=== PATIENT | female | born 1970 | race Caucasian/White ===

== ENCOUNTER → 2016-11-06 | Outpatient (CLI) | payer OTHER | LOC: CIMAGING 10:05 | DX: Z12.31 Encounter for screening mammogram for malignant neoplasm of breast (principal) | CPT/HCPCS: G0202 ==

== ENCOUNTER 2017-07-29 06:23 | Day surgery (SDC) | payer OTHER ==
[2017-07-29 06:57] VITALS: PULSE 56
[2017-07-29] MEDS ORDERED: LR 1,000 ML IV ONE (07:20)
[2017-07-29] MEDS ORDERED: MIDAZOLAM 2 MG/2 ML VIAL IVP ONE (07:42)
--- NOTE | 2017-07-29 07:43 | PDANEPAE ---
ANE Past Medical History - Cardiovascular History Hx Hypertension: No Hx Arrhythmias: No Hx Chest Pain: No Hx Coronary Artery / Peripheral Vascular Disease: No Hx CHF / Valvular Disease: No Hx Palpitations: No Cardiovascular History Comment: BP RUNS LOW - Pulmonary History Hx COPD: No Hx Asthma/Reactive Airway Disease: No Hx Recent Upper Respiratory Infection: No Hx Oxygen in Use at Home: No Hx Sleep Apnea: No Sleep Apnea Screening Result - Last Documented: Positive - Neurologic History Hx Cerebrovascular Accident: No Hx Seizures: No Hx Dementia: No Neurologic History Comment: MIGRAINES OCCAS X3 YRLY - Endocrine History Hx Diabetes: No Hypothyroid: No Hyperthyroid: No Obesity: no - Renal History Hx Renal Disorders: No - Liver History Hx Hepatic Disorders: No - Neurological & Psychiatric Hx Hx Neurological and Psychiatric Disorders: No - Cancer History Hx Cancer: No - Congenital Disorder History Hx Congenital Disorders: No - GI History Hx Gastrointestinal Disorders: No - Other Health History Other Health History: NEG - Chronic Pain History Chronic Pain: No - Surgical History Prior Surgeries: MYOMECTOMY LAPAROSCOPIC. C SECTION X2 ANE Review of Systems Review of Systems: - Exercise capacity METS (RN): 5 METS ANE Patient History - Allergies Allergies/Adverse Reactions: No Known Allergies Allergy (Verified 01/30/12 20:28) - Home Medications Home Medications: Advil 06/25/17 [Last Taken Unknown] Herbals/Supplements -Info Only 06/25/17 [Last Taken Unknown] - NPO status NPO Since - Liquids (Date): 07/28/17 NPO Since - Liquids (Time): 20:00 NPO Since - Solids (Date): 07/28/17 NPO Since - Solids (Time): 20:00 - Smoking Hx Smoking Status: Never smoked - Family Anes Hx Family Hx Anesthesia Complications: NEG ANE Labs/Vital Signs - Vital Signs Blood Pressure: 106/72 Heart Rate: 56 Respiratory Rate: 16 O2 Sat (%): 98 Height: 165.1 cm Weight: 63.503 kg ANE Physical Exam - Airway Neck exam: FROM Mallampati Score: Class 1 Mouth exam: normal dental/mouth exam - Pulmonary Pulmonary: no respiratory distress - Cardiovascular Cardiovascular: regular rate and rhythym - ASA Status ASA Status: I ANE Anesthesia Plan Anesthesia Plan: GA w LMA
[2017-07-29] MEDS ORDERED: SCOPOLAMINE HYDROBROMIDE 1 MG/3 DAYS PATCH TD SCH (07:45)
[2017-07-29] MEDS ORDERED: LIDO/EPI 1% **for epidural** 30 ML SDV ONE (07:53)
[2017-07-29] MEDS ORDERED: fentaNYL 100 MCG/2 ML INJ ONE (08:06)
[2017-07-29] MEDS ORDERED: PROPOFOL 200 MG/20 ML VIAL ONE ×2 (08:07)
[2017-07-29] MEDS ORDERED: LIDOCAINE 2% 5 ML SDV ONE (08:07)
--- NOTE | 2017-07-29 08:13 | PDHPUP ---
History & Physical Update H&P update statement: This history and physical update is based on an assessment of the patient which was completed after admission or registration (within 24 hours), but prior to the surgery/procedure.
[2017-07-29] MEDS ORDERED: KETOROLAC 30 MG/1 ML SDV ONE (08:45)
[2017-07-29] MEDS ORDERED: ONDANSETRON 4 MG/2 ML VIAL ONE (08:45)
[2017-07-29] MEDS ORDERED: DEXAMETHASONE 4 MG/ML VIAL ONE (08:45)
[2017-07-29] MEDS ORDERED: LR 500 ML IV PRN (08:50)
[2017-07-29] MEDS ORDERED: fentaNYL 100 MCG/2 ML INJ IVP PRN (08:50)
[2017-07-29] MEDS ORDERED: NALOXONE HCL 0.4 MG/ML INJ IVP PRN (08:50)
[2017-07-29] MEDS ORDERED: HYDROCODONE/APAP 5/325 TAB PO PRN (08:50)
[2017-07-29] MEDS ORDERED: PROMETHAZINE HCL 25 MG/ML INJ IVP PRN (08:50)
[2017-07-29 09:19] VITALS: TEMP 97.5
--- NOTE | 2017-07-29 09:30 | POSTOPPROG ---
Post Op Note Date of Operation: 07/29/17 Surgeon: Jaylene Long Anesthesiologist: Dr Mejia Anesthesia: LMA Pre-op Diagnosis: DUB, symptomatic fibroid Post-op Diagnosis: same Indication: uterine bleeding Procedure: H/S myomectomy, attempted novasure Findings: fundal fibroid partially submucosal Inf/Abcess present in the surg proc area at time of surgery?: No EBL: Minimal
[2017-07-29 09:47] VITALS: RESP 13; O2SAT 97
[2017-07-29 10:26] VITALS: BP 112/78
--- NOTE | 2017-07-29 17:46 | GOP ---
[f rep st] OPERATIVE REPORT DATE OF OPERATION: 07/29/2017 SURGEON: Jaylene Long MD ANESTHESIA: General with LMA. ANESTHESIOLOGIST: Dr. Mejia. PREOPERATIVE DIAGNOSIS: 1. Dysfunctional uterine bleeding. 2. Symptomatic fibroids. POSTOPERATIVE DIAGNOSIS: 1. Dysfunctional uterine bleeding. 2. Symptomatic fibroids. PROCEDURE PERFORMED: Hysteroscopic myomectomy with an attempted and failed NovaSure endometrial abla tion. FINDINGS: In the fundus was a partially submucosal fibroid. Normal tubal ostia and otherwise normal uterine cavity and normal cervix. In the fundus, though, this fibroid was about 1-2 cm in diameter. ESTIMATED BLOOD LOSS: Minimal. DESCRIPTION OF PROCEDURE: With informed consent signed, patient was taken to the operating room and placed under general anesthesia. Placed in a low dorsal lithotomy position. Bladder previously empt ied. A speculum was placed in the vagina and tenaculum placed on the anterior lip of the cervix. Ce rvix was dilated to 9.5 mm. Hysteroscope placed, using normal saline as a filling medium, and findin gs as noted above. a reciprocator blade placed into the [employer] hysteroscopic morcellator, and resection of the fibroid until it was flush with the uterine wall was done. Next, the endometria l ablation device, NovaSure, was placed into the uterine cavity. The length was 6.5 and width was 4. 2. Of note, the uterus was sounded at 9 cm previously. NovaSure did not activate at all, so it was removed and then replaced, and again the dimensions were obtained and again it did not activate, so i t was felt that this fibroid had caused enough of a defect in the uterine wall and possibly from her 2 C sections. This procedure was terminated, and then the hysteroscope re-replaced into the uterine cavity, and interestingly the rest of the fibroid had avulsed into the endometrium, so further resect ion of this fibroid was done until the fibroid was completely removed. Hemostasis was noted, and the hysteroscope removed. Patient placed in supine position, awakened in the operating room, and taken to recovery room in stable condition, having tolerated the procedure well. The net fluid deficit was about 740 cc. Also, some indication that there was a little bit of leak in the uterine wall from po ssibly resection of this fibroid. INDICATIONS FOR PROCEDURE: Patient is a 47-year-old, , status post 2 C sections and also status post hysteroscopic and laparoscopic myomectomy about 10 years ago. She has had problematic bleeding over the last couple years and ultrasound done over year ago showed impinging submucosal fibroid. T he patient tried control pills to try to mitigate the bleeding; however, it had continued while on the off pills and also during the active pills, becoming more problematic. A repeat sonohysterog tien showed that the impinging fibroid was somewhat larger; however, it was about 50% in the myometriu m, so the plan was to go ahead and do a hysteroscopic myomectomy and NovaSure ablation, with the idea that we would only partially remove the fibroid so it would not cause a defect in the uterine wall a nd therefore enabling an ablation to activate. COMPLICATIONS: None. /[id number]/MODL
== END 2017-07-29 10:24 | disposition home or self-care (01) ==
LOC: FSGY 06:23
PROVIDERS: ATTEND Obstetrics & Gynecology Gynecology
PROC: 0UB98ZZ Excision of Uterus, Via Natural or Artificial Opening Endoscopic (ICD-10-PCS; principal; 2017-07-29 08:00)
DX: D25.0 Submucous leiomyoma of uterus (principal); N93.8 Other specified abnormal uterine and vaginal bleeding
CPT/HCPCS: 58561; C1782; J1100; J1885; J2250; J2405; J2704; J3010

== ENCOUNTER → 2018-10-22 | Outpatient (CLI) | payer OTHER | LOC: EMCIMAGING 11:43 | PROVIDERS: ATTEND Obstetrics & Gynecology Gynecology | DX: Z12.31 Encounter for screening mammogram for malignant neoplasm of breast (principal) | CPT/HCPCS: 77067-PN ==